=== PATIENT | male | born 1990 | race Caucasian/White ===

== ENCOUNTER → 2025-02-11 14:06 | Outpatient (REF) | payer OTHER, SELFPAY | LOC: RAD 14:06 | PROVIDERS: ATTENDING PHYSICIAN Physician Assistant Medical | DX: M54.50 Low back pain, unspecified (principal); M54.2 Cervicalgia; M79.602 Pain in left arm | CPT/HCPCS: 72052; 72110; 73080 ==

== ENCOUNTER 2025-03-18 09:10 | Outpatient (RCR) | payer OTHER, SELFPAY | END 2025-03-18 23:59 | disposition home or self-care (01) | LOC: RPT 09:10 | PROVIDERS: ATTENDING PHYSICIAN Physician Assistant Medical | DX: M54.50 Low back pain, unspecified (principal); M54.2 Cervicalgia; M79.602 Pain in left arm; Z73.6 Limitation of activities due to disability; M62.81 Muscle weakness (generalized); M54.6 Pain in thoracic spine; M25.512 Pain in left shoulder | CPT/HCPCS: 97110; 97162 ==

== ENCOUNTER 2025-03-31 15:34 | Outpatient (RCR) | payer OTHER, SELFPAY | END 2025-04-08 23:59 | disposition home or self-care (01) | LOC: RPT 15:34 | PROVIDERS: ATTENDING PHYSICIAN Physician Assistant Medical | DX: M54.50 Low back pain, unspecified (principal); M54.2 Cervicalgia; M79.602 Pain in left arm; Z73.6 Limitation of activities due to disability; M62.81 Muscle weakness (generalized); M54.6 Pain in thoracic spine; M25.512 Pain in left shoulder | CPT/HCPCS: 97110 ==

== ENCOUNTER 2025-04-27 13:43 | Outpatient (RCR) | payer OTHER, SELFPAY | END 2025-04-28 07:10 | disposition home or self-care (01) | LOC: RPT 13:43 | PROVIDERS: ATTENDING PHYSICIAN Physician Assistant Medical | DX: M54.50 Low back pain, unspecified (principal); M54.2 Cervicalgia; M79.602 Pain in left arm; Z73.6 Limitation of activities due to disability; M62.81 Muscle weakness (generalized); M54.6 Pain in thoracic spine; M25.512 Pain in left shoulder | CPT/HCPCS: 97110 ==